=== PATIENT | male | born 1990 | race Hispanic/Latino ===

== ENCOUNTER 2020-05-24 19:49 | Emergency (ER) | payer OTHER ==
[~2020-05-24] VITALS: Ht 157.5 cm; Wt 72.7 kg
[~2020-05-24 19:49] MED LIST: CIPROFLOXACN500 MG PO; DARVOCET-N 100100 MG OR; MEDDOSEPAK PO; METRONIDAZOLE500 MG PO; NO HOME MEDS; NO MEDS; TERBINAFINE250 MG OR; TRIMOX500 MG PO; ULTRAM50 M1 PO
[2020-05-24] MEDS ORDERED: NAPROXEN500 MG PO (20:56)
[2020-05-24 21:20] VITALS: BP 126/72
== END 2020-05-24 21:25 | disposition home or self-care (01) | DRG 563 ==
LOC: ED 19:49
DX: S86.012A Strain of left Achilles tendon, initial encounter (principal); X50.0XXA Overexertion from strenuous movement or load, initial encounter; Y93.89 Activity, other specified; Y92.89 Other specified places as the place of occurrence of the external cause; Y99.0 Civilian activity done for income or pay